=== PATIENT | female | born 1995 | race Caucasian/White ===

== ENCOUNTER 2018-04-05 02:53 | Inpatient (IN) | payer OTHER ==
[~2018-04-05] VITALS: Ht 160 cm; Wt 56.2 kg
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
--- NOTE | 2018-04-05 05:36 | NUR ---
PT ARRIVED FROM ED VIA STRETCHER. SHE HAS MULTIPLE ABRAISONS ON:FACE, ABDOMEN, RT ARM, CHEST, AND VARIOUS OTHERS. DRIED BLOOD WAS CLEANED UP GOOD POSSIBLE AT THIS POINT WITHOUT MAKING HER MOVE. SHE RATES PAIN 7/10 AT THIS TIME AND IS IN TEARS. BOYFRIEND IS AT BEDSIDE. VS ARE WNL. PT ORIENTED TO ROOM AND CALL LIGHT.
--- NOTE | 2018-04-05 06:40 | NUR ---
PT IS AT 4/10 PAIN AFTER DIALUADID GIVEN. SHE ATTEMPTED TO USE BEDPAN. PERIPAD IN PLACE. CALL LIGHT IS WITHIN REACH.
--- NOTE | 2018-04-05 06:57 | NUR ---
Removed patients tampon replaced with pad.
--- NOTE | 2018-04-05 07:44 | NUR ---
called dr. INGRAM FOR NEW ORDER OF PAIN MEDICATION. MESSAGE LEFT WITH MCKAY POSADAS IN DS.
--- NOTE | 2018-04-05 08:25 | NUR ---
rounded with dr. perera in room. assessment complete. patient able to use bedpan. voided clear yellow urine 600mls. assisted patient in bed. scds place on.
--- NOTE | 2018-04-05 09:31 | NUR ---
csr retail started. verified with abdullahi sosa. patient resting in bed at this time with hob elevated. dr. cheney had just rounded in room. patient currently rating pain 3/10. educated on how to use the csr retail was given to patient. patient was able to demonstrate use.
--- NOTE | 2018-04-05 10:57 | NUR ---
PT HAS VISITOR, WILL CHECK BACK LATER.
--- NOTE | 2018-04-05 11:24 | NUR ---
PATIENT SITTING UP IN BED. RN IN ROOM. PATIENTS BOYFRIEND IN ROOM. CALL LIGHT WITHIN REACH. ICE CHIPS FOR PATIENT. VITALS AND I&Os DONE. NO OTHER NEEDS AT THIS TIME.
--- NOTE | 2018-04-05 12:06 | NUR ---
xray in room to do chest xray. patient tolerated with some assistance. sat straight up in bed. tolerating clear liquid diet at this time. no nausea. pain okay at this time.
--- NOTE | 2018-04-05 12:52 | NUR ---
bedbath given to patient. patient assisted with cares. patient assited to the chair with a two person assist. painful with activity but patient was able stand on own. c/o most of the pain in her hips.
--- NOTE | 2018-04-05 14:19 | NUR ---
PATIENT MOVED FROM CHAIR TO BSC TO BED. PATIENT VERY PAINFUL WITH MOVEMENT NEEDING A LOT OF ENCOURAGEMENT. ASSISTED BACK TO BED. REPOSITIONED IN BED. PATIENT STATING WHEN RESTING PAIN OKAY. SET UP WITH CLEAR LIQUIDS.
--- NOTE | 2018-04-05 14:33 | NUR ---
PT SITTING, HER BOYFRIEND TRYING TO SLEEP. SHE WAS PLEASANT, ALERT AND ORIENTED TO RM. SHE SHARED HOW SHE JUST HAD A BIG LIFE LESSON. SHE ADMITTED THAT SHE IS THANKFUL TO BE ALIVE. EXTENDED A BLESSING, WILL FOLLOW NEEDED
--- NOTE | 2018-04-05 14:59 | NUR ---
this steel fitter and rn assisted patient from the bed to the chair at 1200. patient sat up resting in the chair until 1400. then we assisted from the chair to the bedside commode. patient states she is very painful in the hips. patient is now resting in bed. patients boyfriend in room. this steel fitter brought patient chicken broth. case management in room talking with family now.
--- NOTE | 2018-04-05 15:27 | NUR ---
MED REC COMPLETE
--- NOTE | 2018-04-05 15:46 | NUR ---
patient doing well. nausea undercontrol at this time.
--- NOTE | 2018-04-05 15:47 | NUR ---
MED REC COMPLETE
--- NOTE | 2018-04-05 16:48 | NUR ---
PATIENT RESTING WITH HOB ELEVATED IN BED.
--- NOTE | 2018-04-05 16:50 | NUR ---
PATIENT DID WELL TODAY. VERY PAINFUL WITH ANY TYPE OF MOVEMENT. MOVED TO CHAIR THIS AFTERNOON. MOVING WITH 2 PERSON ASSIST AND VERY SLOW. MORPHINE RETAIL LOSS PREVENTION SPECIALIST IN USE. PATIENT HAS BEEN HAVING NAUSEA OFF AND ON ( WITH ANXIETY OF MOVEMENT) ZOFRAN TREATING NAUSEA. PATIENT VOIDING QS TO [facility] AND BEDBED. ICE TO L ELBOW. ABRASIONS TO R SIDE AND L SIDE OF FACE AND EYE. PATIENT BACK IS CLEAR OF ANY ABRASIONS. LUNGS ARE CLEAR. XRAY NEGATIVE FOR PNEUMO. CLEAR LIQUID DIET AT THIS TIME.
--- NOTE | 2018-04-05 19:32 | NUR ---
RECEIVED REPORT FROM CUAUHTEMOC MARTINEZ. PT IN BED, POST SHOWER. NAUSAEATED FROM EFFORT. HAS A CLEAR LIQUID TRAY AT BEDSIDE, FRIEND NADIA AT BEDSIDE.
--- NOTE | 2018-04-05 19:45 | NUR ---
THIS LAWN CARE SPECIALIST AND RN ASSISTED PATIENT FROM THE BED TO THE SHOWER. 2 PERSON ASSIST. THIS LAWN CARE SPECIALIST ASSISTED PATIENT WITH A SHOWER. AFTER THE SHOWER PATIENT STATED THAT SHE FEELS LESS TENSE AND NOT SO PAINFUL. PATIENT NOW RESTING IN BED. PATIENTS BOYFRIEND IN THE ROOM. FRESH GOWN. GARBAGE EMPTIED. VITALS AND I&Os DONE. CALL LIGHT WITHIN REACH. NO OTHER NEEDS AT THIS TIME.
--- NOTE | 2018-04-05 21:30 | NUR ---
ASSESSMENT COMPLETED. PT IN BED, BOYFRIEND AT BEDSIDE. STATES HER NAUSEA IS IMPROVED WITHOUT TREATMENT. LEFT EYE OPEN, LESS SWELLING NOTED COMPARED TO HER ADMISSION. STATES HER PAIN IS CONTROLLED WITH THE TOOL MAINTENANCE TECHNICIAN. DENIES NEW PAINS, ABLE TO MOVE BETTER WITH LESS PAIN. RESPIRATIONS EVEN AND UNLABORED, SATS IN THE MID 90'S ON RA. LUNGS CLEAR. SCD'S NOT ON AT THIS TIME, WILL ENCOURAGE WHEN SHE GETS READY TO SLEEP. CALL LIGHT WITHIN REACH. NO OTHER NEEDS AT THIS TIME.
--- NOTE | 2018-04-05 22:51 | NUR ---
CHECKED ON PT, OFFERED FOOD/FLUIDS, SHE REQEUSTED BEEF BROTH. NO OTHER CONCERNS OR NEEDS AT THIS TIME.
--- NOTE | 2018-04-05 23:08 | NUR ---
IV FLUIDS REPLACED, PT WITH EYES CLOSED, RESP EVEN AND UNLABORED. BOYFRIEND AT BEDSIDE.
--- NOTE | 2018-04-06 00:50 | NUR ---
CHECKED IN ON PT. EYES CLOSED, RESP EVEN UNLABORED. HAS USED [facility] IN PAST HOUR, IV CONINTUES TO INFUSE PER ORDER. HOB ELEVATED, BOYFRIEND AT BEDSIDE.
--- NOTE | 2018-04-06 02:00 | NUR ---
RECEIVED REPORT AT 0100. PT WAS SLEEPING.
--- NOTE | 2018-04-06 04:00 | NUR ---
PT HAS BEEN SLEEPING MOST OF THIS SHIFT SO FAR. PAIN SEEMS TO BE WELL CONTROLLED WITH DIRECTOR PHARMACOLOGY.
--- NOTE | 2018-04-06 05:51 | NUR ---
VITALS AND I&OS DONE AND CHARTED. BEDSIDE TABLE AND CALL LIGHT WITHIN REACH. HELPED CUAUHTEMOC REAL GET PT TO THE BEDSIDE COMMODE AND BACK TO BED.
--- NOTE | 2018-04-06 06:07 | NUR ---
PT SLEPT FOR THE MOST PART. ALL LOBES ARE CLEAR. PAIN IS WELL CONTROLLED LONG PT IS NOT MOVING. PT NEEDS A LOT OF ENCOURAGMETNT TO GET OUT OF BED. RADIAL AND PEDIS PULSES ARE +2. NO EDEMA NOTED OVERALL. V/S ARE WDL. NO NEW CONCERNS FOR THIS PT AT THIS TIME.
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
--- NOTE | 2018-04-06 07:40 | NUR ---
patient resting in bed with hob elevated. patient rating pain right now 2/10. patient stating she slept okay last night. lungs clear. no sob. updated that clear diet will be coming this am. patient has hypoactive bs. no nausea. cont to sat well on ra. plan of care discussed this morning. goals today include walking in the gross. pain control with po pain medication. patient agreed with plan of the day.
--- NOTE | 2018-04-06 08:45 | NUR ---
JAYRO SITTING IN CHAIR. EATING CLEAR LIQUID DIET. PATIENT PAINFUL IN THE CHAIR BUT REMINDED TO RELAX. PATIENT ASSISTED TO THE BSC AFTER FINISHED HER CLEAR LIQUID TRAY.
--- NOTE | 2018-04-06 09:43 | NUR ---
PATIENT ASSISTED BACK TO BED FROM CHAIR WITH A ONE ASSIST. PATIENT REMAINS PAINFUL WITH MOVEMENT. ONCE IN A SITTING POSITION MORE COMFORTABLE. PILLOWS PLACED ON LOWER BACK. CHANGED EXAM PROCTOR SYRINGE.
--- NOTE | 2018-04-06 10:48 | NUR ---
patient tolerating beef broth. patient agreed to take a shower and ambulate in gross after finished with beef broth.
--- NOTE | 2018-04-06 11:02 | NUR ---
pt is resting in bed safely with call light in reach. pt did not need anything at this time. pt would like to showwer but would like to wait until later this afternoon.
--- NOTE | 2018-04-06 12:06 | NUR ---
ROUNDED WITH . PLAN TO ADVANCE DIET. START TRANSITIONING TO ORAL PAIN MEDICATIONS. X-RAY OF L ELBOW.
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
--- NOTE | 2018-04-06 13:07 | NUR ---
patient assisted with shower. patient was able to participate and do a lot of her own cares. patient then agreed to ambulate in gross. tolerated ambulating an entire lap without any issues. chat in the chair to eat her regular diet. tolerating mash potatoes and gravy. xray in room to do images of l elbow.
--- NOTE | 2018-04-06 13:50 | NUR ---
PATIENT ASSISTED BACK TO BED TO FINISH EATING LUNCH. NO OTHER NEEDS AT THIS TIME.
--- NOTE | 2018-04-06 13:52 | NUR ---
pt was sitting up in chair but said she was very painful and uncomfortable. helped pt back to bed, where she is now resting safely with call light in reach. pt asked for her HEALTH PROMOTION COORDINATOR button, I clipped it to her gown.
--- NOTE | 2018-04-06 14:56 | NUR ---
PHYSICAL THERAPY IN ROOM TO WORK WITH PATIENT.
--- NOTE | 2018-04-06 15:28 | NUR ---
PATIENT ASSISTED TO THE BR. THEN ASSISTED BACK TO BED. MOTRIN GIVEN. PATIENT IS NOT NAUSEATED AT THIS TIME. ORDERED DINNER.
--- NOTE | 2018-04-06 16:05 | NUR ---
patient sitting up in bed with family in room. patient rating pain 4/10. tolerating motrin. no nausea at this time. percocet 1 tab given.
--- NOTE | 2018-04-06 17:02 | NUR ---
PT ASSISTED TO THE BR. PATIENT SATING PAIN CURRENTLY 10/26. ABLE TO GET OFF THE BED AND INTO BR WITH MINIMAL ASSIST. TOLERAING WELL. NO NAUSEA.
--- NOTE | 2018-04-06 18:13 | NUR ---
PATIENT DOING A LOT BETTER TODAY. PO PAIN MEDICATION GIVEN. NAUESA IMPROVED. MOTRIN GIVEN. PATIENT USING CUSHION MAKER HAND LESS. VOIDING WELL. A ASSIST TO BR. AMBULATED IN THE LOCK X 3. PT IN ROOM TO ASSIST PATIENT. TOLERATING REGULAR DIET.
--- NOTE | 2018-04-06 18:22 | NUR ---
pt is resting in bed with call light in reach. pt asked for more soup and a soda. pt asked for a new gown.
--- NOTE | 2018-04-06 19:20 | NUR ---
RECEIVED BEDSIDE RPEORT FROM DAY SHIFT NURSE. PT IN BED. REPORTS PAIN 3/10 AT THIS TIME. FRIENDS AT BEDSIDE. CALL LIGHT [employer]. REPORTS NO OTHER NEEDS AT THIS TIME. STAFF MIDWIFE/APPRENTICESHIP DIRECTOR PUMP IN PLACE. PT REPORTS NOT USING IT SINCE RECIEVING PO PAIN MEDICAITON. NO NAUSEA AT THIS TIME. REPORTS NO OTHER NEEDS
--- NOTE | 2018-04-06 21:24 | NUR ---
VITALS AND I&OS DONE AND CHARTED. BEDSIDE TABLE AND CALL LIGHT WITHIN REACH. PT IS FEELING SICK TO HER STOMACH. I LET HER RN MO KNOW. SHE SAID SHE WILL TAKE HER SOME MEDS.
--- NOTE | 2018-04-06 21:31 | NUR ---
MACHINE STAPLER REPORTED PT WAS EXPERIENCING NAUSEA. ASSESSED PT. REPORTS NAUSEA, DRY HEAVING INTO BAG. 4MG ZOFRAN GIVEN. PO FOOD AND MEDICAITION HELD. CALL LIGHT WITHIN REACH.
--- NOTE | 2018-04-06 23:30 | NUR ---
PT REPORTS NAUSEA HAS IMPROVED. SOUP GIVEN PER PT REQUEST. CALL LIGHT WITHIN REACH.
--- NOTE | 2018-04-07 | NUR ---
PT UP AMBULATING HALLS WITH HER BOYFRIEND. SLOW AND STEADY, TOLERATING WELL.
--- NOTE | 2018-04-07 01:35 | NUR ---
PT REPORTS PAIN /10. PERCOCET GIVEN. CALL LIGHT WITHIN REACH. REPORTS NO OTHER NEEDS AT THIS TIME.
--- NOTE | 2018-04-07 02:39 | NUR ---
MOTRIN GIVEN. PAIN 11/26. RESPIRATIONS 16. O2 99%. CALL LIGHT WITHIN REACH.
--- NOTE | 2018-04-07 04:11 | NUR ---
SBA TO BATHROOM. PT REPORTS PAIN 2/10 WITH AMBULATION. BACK TO BED. TOLERATED WELL. CALL LIGHT WITHIN REACH. SCD'S IN PLACE. NO OTHER NEEDS AT THIS TIME.
--- NOTE | 2018-04-07 06:12 | NUR ---
BP OF 96/56 REPORTED FROM PHYS THERAPIST JANUARY. MANUAL BP TAKEN BY THIS NURSE ANFTER STANDING PT UP, NO DIZZINESS, OR LIGHTHEADEDNESS. AMBULATED IN ROOM. BP 132/93. HR 93, RESPIRATIOSN 16. CALL LIGHT WITHIN REACH. PT BACK TO BED.
--- NOTE | 2018-04-07 07:47 | NUR ---
PATIENT SITTING UP IN BED, RN IN ROOM. PATIENT REFUSED WARM WASH CLOTH TO WASH HANDS AND FACE WITH. CALL LIGHT IN REACH. NO OTHER NEEDS AT THIS TIME.
--- NOTE | 2018-04-07 07:57 | NUR ---
PATIENT RESTING IN BED WITH HOB ELEVATED. PATIENT GIVEN ICE PACK FOR LOWER BACK. REPORTS PAIN BETTER. 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 LUNGS CLEAR. ACTIVE BS. BREAKFAST ORDERED. SCDS IN PLACE. BOYFRIEND ASLEEP ON SOFA. IV RUNNING WNL. MORNING MEDICATION GIVEN. PLAN TO DO SHOWER AFTER BREAKFAST.
--- NOTE | 2018-04-07 09:53 | NUR ---
PATIENT WOKE FOR ANOTHER ASSESSMENT. PATIENT STATING THAT SHE IS " REALLY TIRED TODAY". ENCOURAGED PO PAIN MEDICATION VS. OPERATIONS DEVELOPER. PATIENT DID STATE THAT SHE WAS PAINFUL ONCE WHEN SHE WOKE AND PUSH OPERATIONS DEVELOPER BUTTON. GAVE 1 TAB PERCOCET AND MOTRIN GIVEN. BREAKFAST SET UP FOR PATIENT. NO NAUSEA AT THIS TIME.
--- NOTE | 2018-04-07 10:10 | NUR ---
THIS VETERINARY MICROBIOLOGIST ASSISTED PATIENT UP TO BEDSIDE COMMODE AND BACK TO BED. PATIENT IS VERY SENSITIVE AND SORE, AND WINCES AND MOANS IN PAIN WHEN MOVING. PATIENT STATES SHE IS VERY NAUSEOUS AT THIS TIME. RN NOTIFIED. SCD'S ON, WARM BLANKETS PROVIDED, PATIENT SHIVERING. NO OTHER NEEDS AT THIS TIME.
--- NOTE | 2018-04-07 11:05 | NUR ---
patient working with physical therapy. tolerated ambulating in gross for 6 minutes. worked with the stairs and other activities. patient currently rating pain 3/10.
--- NOTE | 2018-04-07 11:57 | NUR ---
PATEINT SITTING UP IN BED. TOLERATING CHICKEN SOUP.
--- NOTE | 2018-04-07 12:43 | NUR ---
PATIENT RESTING IN BED. PATIENT STATES SHE IS STILL SLIGHTLY NAUSEATED. RN NOTIFIED. NO OTHER NEEDS AT THIS TIME.
[2018-04-07] MEDS ORDERED: IBUPROFEN600 MG PO (13:38)
[2018-04-07] MEDS ORDERED: OXYCODON-ACETA1 EAC2 PO (13:38)
[2018-04-07] MEDS ORDERED: MAPAP325 MG PO (13:39)
--- NOTE | 2018-04-07 13:45 | NUR ---
PATIENT RESTING IN BED. THIS CHANNEL BUSINESS MANAGER STANDBY ASSISTED PATIENT UP TO BATHROOM. PATIENT STILL SORE, BUT TOLERATING WELL. CALL LIGHT IN REACH. NO OTHER ENEDS AT THIS TIME.
--- NOTE | 2018-04-07 14:33 | NUR ---
DISCHARGE INSTRUCTIONS GIVEN. PHARMACY IN ROOM TO GO OVER MEDICATION. PATIENT GIVEN SCRUBS TO WEAR HOME DUE TO PATIENT NOT HAVING CLOTHING TO WEAR. PATIENT FINISHING UP HER LUNCH. PAIN RATING JAMIA 10/26. MOTRIN GIVEN FOR ANTICIPATION OF GOING HOME.
== END 2018-04-07 15:00 | disposition home or self-care (01) | DRG 552 ==
LOC: ED 02:53 → MS 02:54
PROVIDERS: ADMIT Surgery
DX: S32.029A Unspecified fracture of second lumbar vertebra, initial encounter for closed fracture (principal); S27.0XXA Traumatic pneumothorax, initial encounter; T79.7XXA Traumatic subcutaneous emphysema, initial encounter; S32.039A Unspecified fracture of third lumbar vertebra, initial encounter for closed fracture; S32.049A Unspecified fracture of fourth lumbar vertebra, initial encounter for closed fracture; V47.6XXA Car passenger injured in collision with fixed or stationary object in traffic accident, initial encounter; S01.81XA Laceration without foreign body of other part of head, initial encounter; S01.112A Laceration without foreign body of left eyelid and periocular area, initial encounter; M25.522 Pain in left elbow; M25.422 Effusion, left elbow; F10.129 Alcohol abuse with intoxication, unspecified; Y90.6 Blood alcohol level of 120-199 mg/100 ml
CPT/HCPCS: 12013; 36415; 51701; 70450; 71045; 71260; 72125; 73080; 74177; 80053; 81001; 82150; 82550; 83690; 84703; 85025; 86850; 86900; 86901; 90471; 90715; 94762; 96374; 96375; 96376; 97110; 97116; 97161; 97530; 99285; G0378; G0480; J1170; J2270; J2405; J7030; J7120; Q9967

== ENCOUNTER 2019-08-31 21:39 | Inpatient (IN) | payer OTHER ==
[~2019-08-31 21:39] MED LIST: IBUPROFEN600 MG PO; MAPAP325 MG PO; OXYCODON-ACETA1 EAC2 PO
--- NOTE | 2019-08-31 23:48 | PR ---
[facility] [address] [place], [place] [address] Signed Progress Notes IP Datetime Report Generated by CPN: 08/31/2019 23:48 PROGRESS NOTES: [id number] Impression: Normal progression of labor; Reassuring heart rate Procedures: Artificial ROM Plan: Continue present management; Anesthesia consult; Anticipate Vaginal Delivery Informed Consent Obtain: Vaginal Delivery VITAL SIGNS: [id number] Vital Signs: Reviewed; Within Normal Limits EXAM: [id number] Dilatation: 5.0 Effacement: 80 Station: -2 Uterine Contractions: q3 minutes MEMBRANES: [id number] Membrane Status: Intact ROM Note: AFter informed consent and ensuring vertex well applied, AROM perfomed on bulging membranes without difficulty. Moderate amount clear fluid. Mother and baby tolerated well. Comments: Pt doing well. Ctxs more uncomfortable. AROM performed without difficulty. Pt now desires epidural. Discussed anticipated course of labor and . All questions answered. Fetus A: [id number] FHR Baseline: 135 Variability: Moderate 6-25bpm Accelerations: 15X15 Decelerations: None FHR Category: Category I Presentation: Vertex Comments on Fetus A: No evidence of metabolic acidosis Fetus B: [id number] Signing Physician: Christina Smith DO Copies: ~ *Electronically Signed* 08/31/19 5095 CHRISTINA SMITH DO PATIENT NAME: VIOLA COLEMAN PROGRESS NOTE DATE OF : 93 PHYSICIAN: CHRISTINA SMITH DO RPT #: [id number] REPORT IS CONFIDENTIAL AND NOT TO BE RELEASED WITHOUT AUTHORIZATION
--- NOTE | 2019-09-02 10:11 | PR ---
[facility] [address] [facility] [place], [place] [address] Signed PP Progress Notes Datetime Report Generated by CPN: 09/02/2019 10:11 SUBJECTIVE: [id number] Pain: Within normal limits Nausea/Vomiting: Denies Vital Signs: [id number] Vital Signs: Reviewed; Within Normal Limits EXAM: [id number] Cardiovascular: Not Done Respiratory: Not Done Abdomen/Uterus: Abnormal Lochia: Normal Vulva/Perineum: Not Done Breasts: Not Done CVA Tenderness: Not Done Extremities: Normal Incision: Not Applicable Progress: Normal Exam Comments: Fundus firm, NT @ U-2. H/H 12.4/36.8, WBC 10.8, plat 152k IMPRESSION/PLAN/PROCEDURES: [id number] Impression: Normal progression Plan: Discharge Progress Notes: Doing well. She desires D/C at this time. Signing Physician: Johanna Del Toro MD Copies: ~ *Electronically Signed* 09/02/19 1011 JOHANNA DEL TORO MD PATIENT NAME: VIOLA COLEMAN PROGRESS NOTE DATE OF : 93 PHYSICIAN: JOHANNA DEL TORO MD RPT #: [id number] REPORT IS CONFIDENTIAL AND NOT TO BE RELEASED WITHOUT AUTHORIZATION
== END 2019-09-02 13:25 | disposition home or self-care (01) | DRG 807 ==
LOC: FBCO 21:39 → FBC 23:25
PROVIDERS: ADMIT Obstetrics & Gynecology
PROC: 10907ZC Drainage of Amniotic Fluid, Therapeutic from Products of Conception, Via Natural or Artificial Opening (ICD-10-PCS; 2019-08-31)
PROC: 10E0XZZ Delivery of Products of Conception, External Approach (ICD-10-PCS; principal; 2019-09-01)
PROC: 00HU33Z Insertion of Infusion Device into Spinal Canal, Percutaneous Approach (ICD-10-PCS; 2019-09-01)
PROC: 3E0R3BZ Introduction of Anesthetic Agent into Spinal Canal, Percutaneous Approach (ICD-10-PCS; 2019-09-01)
DX: O99.324 Drug use complicating childbirth (principal); Z37.0 Single live birth; F12.90 Cannabis use, unspecified, uncomplicated; Z3A.38 38 weeks gestation of pregnancy; Z87.891 Personal history of nicotine dependence
CPT/HCPCS: 01960; 85027; A9270; J2590; J2795; J7121